=== PATIENT | female | born 1990 | race Caucasian/White ===

== ENCOUNTER 2017-07-28 07:30 | Day surgery (SDC) | payer OTHER ==
[2017-07-13 10:29] VITALS: Ht 152.4 cm; Wt 99.5 kg
[~2017-07-28] VITALS: Ht 152.4 cm; Wt 99.5 kg
[~2017-07-28 07:30] MED LIST: BCPILLS PO; CETI10TA84 PO; GLC/500 PO; KETO0.0216 OP; LACTATED RINGER'S 1000ML 1,000 ML IV SCH; MULT-506 PO; SCOPOLAMINE 1.5 MG TDSY TD SCH
[2017-07-28 08:07] VITALS: BP 121/91; PULSE 77; TEMP 36.8; O2SAT 96
--- NOTE | 2017-07-28 09:25 | History & Physical Bridge Note ---
H&P Re-Evaluation Bridge Note: I have examined the patient, reviewed the History & Physical and in the interval since the performance of the History & Physical I have noted the following changes of clinical significance: No changes noted
[2017-07-28] MEDS ORDERED: SODIUM CHLORIDE 0.9% 1000ML 1,000 ML IV SCH (09:31)
--- NOTE | 2017-07-28 09:31 | Discharge Instructions ---
Discharge Instructions Date of Service July 28, 2017. Admission Reason for Admission: Acute Recurrent Pansinusitis, Septal Deviation, and Hypertrophy of Both Inferior Turbinates. Discharge Discharge Diagnosis / Problem: Recurrent acute sinusitis, deviated nasal septum , turbinate hypertrophy. Discharge Goals Goal(s): Improve function Activity Recommendations Activity Limitations: as noted below Lifting Limitations: no more than 5 pounds Exercise/Sports Limitations: until after follow-up appointment May Resume Sexual Activity: after one week Shower/Bathe: tomorrow Driving or Machine Use: No driving while taking a narcotic. . Instructions / Follow-Up Instructions / Follow-Up Follow-up with Dr. Fernández on , 07/30/17. Current Hospital Diet Patient's current hospital diet: Discharge Diet Recommended Diet: Regular Diet Procedures Procedures Performed: Nasal and Sinus Surgical Endoscopy, Septoplasty, and bilateral inferior turbinate reduction. Pending Studies Studies pending at discharge: no Medical Emergencies . Who to Call and When: Medical Emergencies: If at any time you feel your situation is an emergency, please call 911 immediately. . Non-Emergent Contact Non-Emergency issues call your: Primary Care Provider Call Non-Emergent contact if: you have a fever . . "Provider Documentation" section prepared by Dave Fernández. .
[2017-07-28] MEDS ORDERED: THROMBIN 5000 UNITS KIT ONE (09:34)
[2017-07-28] MEDS ORDERED: LIDOCAINE/EPINEPHRINE 1% 20 ML VIAL ONE (09:34)
[2017-07-28] MEDS ORDERED: COCAINE HCL 4% / 4 ML VIAL ONE (09:34)
[2017-07-28] MEDS ORDERED: OXYMETAZOLINE HCL 0.05% NA SPR 15 ML BTL ONE ×3 (09:34→11:10)
[2017-07-28] MEDS ORDERED: BACITRACIN 50000 UNIT VIAL ONE ×2 (09:35→11:22)
[2017-07-28] MEDS ORDERED: ROCURONIUM BROMIDE 10 MG/ML 5 ML VIAL ONE (09:36)
[2017-07-28] MEDS ORDERED: MIDAZOLAM HCL 1 MG/ML 2ML VIAL ONE (09:36)
[2017-07-28] MEDS ORDERED: LIDOCAINE HCL 2% 2 ML VIAL (20MG/ML) ONE (09:36)
[2017-07-28] MEDS ORDERED: PROPOFOL IV EMULSION 10 MG/ML 20 ML VIAL ONE (09:36)
[2017-07-28] MEDS ORDERED: NEOSTIGMINE METHYLSULFATE 5 MG/5 ML SYR ONE (09:36)
[2017-07-28] MEDS ORDERED: ONDANSETRON INJ 2 MG/ML 2 ML VIAL ONE (09:36)
[2017-07-28] MEDS ORDERED: OFLOXACIN 0.3% OP SOLN 5 ML BTL ONE (09:36)
[2017-07-28] MEDS ORDERED: GLYCOPYRROLATE INJ 0.2 MG/ML VIAL ONE (09:36)
[2017-07-28] MEDS ORDERED: DEXAMETHASONE SOD INJ 4 MG/ML VIAL ONE (09:36)
[2017-07-28] MEDS ORDERED: FENTANYL CITRATE INJ 50 MCG/1 ML 2 ML VIAL ONE (09:36)
[2017-07-28] MEDS ORDERED: CIPRO 0.3%/DEXAMETHASONE 0.1% OTIC SUSP 7.5ML ONE (09:37)
[2017-07-28] MEDS ORDERED: NEOMYC/POLYMYX/BACITR/HC OP OI 3.5 GM TUBE ONE (09:37)
[2017-07-28] MEDS ORDERED: LARYING-O-JET KIT (LTA) ONE (09:41)
[2017-07-28] MEDS ORDERED: SALINE NASAL GEL (AYR) 14.1 GM TUBE ONE (09:45)
[2017-07-28] MEDS ORDERED: NURSING VERBAL MED ORDER ONE (09:45)
[2017-07-28] MEDS ORDERED: CEFAZOLIN SOD 1 GM VIAL ONE (10:11)
[2017-07-28] MEDS ORDERED: METOCLOPRAMIDE HCL INJ 5 MG/ML 2 ML VIAL ONE (10:18)
[2017-07-28] MEDS ORDERED: DiphenhydrAMINE HCL 50 MG/ML VIAL ONE (10:18)
[2017-07-28] MEDS ORDERED: STERILE IRRIGATING SOLUTION (BSS) 15ML ONE (11:29)
[2017-07-28] MEDS ORDERED: MEPERIDINE HCL 25 MG/ML CARP IV PRN (11:30)
[2017-07-28] MEDS ORDERED: EpHEDrine SULFATE INJ 50 MG/ML AMP IV PRN (11:30)
[2017-07-28] MEDS ORDERED: ATROPINE SULFATE 0.1 MG/ML 5ML SYR IV PRN (11:30)
[2017-07-28] MEDS ORDERED: FENTANYL CITRATE INJ 50 MCG/1 ML 2 ML VIAL IV PRN (11:30)
[2017-07-28] MEDS ORDERED: HYDROmorphone INJ 0.5 MG/0.5 ML SYR IV PRN (11:30)
[2017-07-28] MEDS ORDERED: ONDANSETRON INJ 2 MG/ML 2 ML VIAL IV PRN (11:30)
[2017-07-28] MEDS ORDERED: LABETALOL HCL IV 5 MG/ML 20ML IV PRN (11:30)
--- NOTE | 2017-07-28 11:39 | [facility] Post Operative Brief Note ---
Immediate Operative Summary Operative Date July 28, 2017. Pre-Operative Diagnosis A) Recurrent acute sinusitis. B) Deviated Nasal Septum C) Bilateral Inferior Turbinate Hypertrophy Post-Operative Diagnosis A - C: Same, HOWEVER, THE DEGREE OF SEPTAL DEVIATION DID NOT WARRANT SEPTOPLASTY, SO IT WAS NOT PERFORMED Procedure(s) Performed Nasal and Sinus Surgical Endoscopy, with bilateral inferior turbinate reduction. Surgeon Joselo Fernández M.D. Clinical Education Coordinator Surgeon(s) None. Estimated Blood Loss 100 ml Findings Consistent with Post-Op Diagnosis Fluids (cc crystalloids) 1,400 ML Specimens None. Drains None Anesthesia Type General Complication(s) none Disposition Accompanied Pt To Recover: no Disposition: Recovery Room / PACU Overlapping Procedure I was present for: the critical portions of procedure. I was immediately available: during the entire case Back up surgeon: was not required during procedure
[2017-07-28 13:10] VITALS: BP 137/99; PULSE 79; TEMP 36.4; O2SAT 96
--- NOTE | 2017-07-28 13:16 | OPERATIVE REPORT ---
DATE OF OPERATION: 07/28/2017 PREOPERATIVE DIAGNOSES: 1. Recurrent acute sinusitis. 2. Deviated nasal septum. 3. Bilateral inferior turbinate hypertrophy. POSTOPERATIVE DIAGNOSES: 1. Recurrent acute sinusitis. 2. Deviated nasal septum, however, the septal deviation was not severe enough to warrant a septoplasty. Therefore, no septoplasty was performed. 3. Bilateral inferior turbinate hypertrophy PROCEDURE PERFORMED 1. Nasal and sinus surgical endoscopy using Fusion image guidance resulting in: a.) Bilateral anterior ethmoidectomy (35000-46). b.) Bilateral maxillary sinusotomy without removal of tissue (44520-45). c.) Left nasofrontal recess balloon dilation (58450). 2. Bilateral inferior turbinate reduction. SURGEON: Dave Fernández MD CRIMINAL JUSTICE TEACHER SURGEON: None. BLOOD LOSS: 100 mL. SPECIMENS: None. FLUIDS PROVIDED: 1,400 mL of crystalloid. FINDINGS: 1. Septal deviation not severe enough to the left to warrant surgical correction. 2. Bilateral inferior turbinate hypertrophy. 3. Normal sinus mucosa for the ethmoid and maxillary sinuses. ANESTHESIA TYPE: General via endotracheal intubation. COMPLICATIONS: None. INDICATIONS FOR THE PROCEDURE: 27 year old woman meeting criteria for nasal and sinus surgical endoscopy based upon frequency of infections. She also had bilateral inferior turbinate hypertrophy recalcitrant to medical management. She was consented for septoplasty to ensure access. In a relaxed office setting, a full informed consent was provided that included the indications, risk, and benefits. There was an opportunity for questions and answers. DESCRIPTION OF PROCEDURE: The patient had an uneventful endotracheal intubation. The table was placed in reverse Trendelenburg. Oropharynx was packed with a vaginal pack. Septum, inferior turbinates, middle turbinates, and anterior ethmoidal bulla were injected with 15 mL of 1% lidocaine 1:100,000 parts epinephrine. The middle meatus was packed with 2 neurosurgical pledgets on each side, soaked in cocaine 4%. Remaining part of the nose on each side was packed with 2 neurosurgical pledgets soaked in oxymetazoline 0.05%. Therefore, at this point there were 8 neurosurgical pledgets in the nose. I calibrated the fusion image guidance system and then the patient was draped in a sterile fashion while I scrubbed. After returning, I removed the nasal packing in the nose, which consisted of 8 neurosurgical pledgets. I reassessed the nose and confirmed my suspicion that the septum did not need to undergo surgery. Therefore, no septoplasty was performed. Therefore, attention was directed to the inferior turbinates bilaterally. The mucosa for each inferior turbinate on the lateral surface was largely removed using the 4.3 straight microdebrider. Bone was also removed. Medial surface mucosa was carefully preserved. After removing bone and mucosa from the lateral surface, the Arthrocare coblation plasma wand was introduced. The technique was to first dip it in [place] saline gel, then to pass it along the lateral surface all the way to the posterior end of each inferior turbinate and then it was pulled out towards the nares counting to 10. This was done once on the lateral surface and then 2 times submucosally on the medial surface of each inferior turbinate. This effected a nice reduction in inferior turbinate size bilaterally. REMAINDER OF THE PROCEDURE WAS DONE USING THE SURGICAL HEADLIGHT, SURGICAL LOOPS, AND 30-DEGREE ENDOSCOPE INTERCHANGEABLY. UNFORTUNATELY, THE ENDOSCRUB DEVICE WAS NOT AVAILABLE. The anterior ethmoidal bulla was entered bilaterally using straight suction and then the 4.3 mm mid straight cutting microdebrider tip was used to perform an anterior ethmoidectomy. Ethmoid sinus mucosa was within normal limits. The natural ostium for each maxillary sinus was cannulated with a curved suction tip. The maxillary sinus was entered and the position confirmed with the image guidance. Backbiting forceps was used to create a wide sinusotomy bilaterally. Maxillary sinus mucosa was within normal limits. The left frontal recess was cannulated with the ostium seeker and position confirmed with image guidance. Then, the 6 mm x 17 mm balloon was introduced easily and its position confirmed. It was inflated to 12 atmospheres. There was copious irrigation and use of suction electrocautery to make sure hemostasis was obtained. There was no CSF leak and there was no excessive bleeding. After suction electrocautery and irrigation and removal of saline, there was no further bleeding seen and no CSF leak. Therefore, the ethmoid defect was packed with Nasopore soaked in bacitracin solution. Telfa soaked in bacitracin solution was placed along on the floor of the nose. Straws were placed between the Nasopore and the Telfa to facilitate breathing later for the patient. Mustache dressing was positioned. I removed the oropharyngeal packing from the oropharynx. I irrigated the oropharynx to make sure there was no blood, bone or cartilage in the oropharynx. There was no blood coming down from the nose into the oropharynx. Therefore, I placed an oral airway under direct visualization for the GRADUATE CIVIL ENGINEER. The patient was allowed to wake up on her own and transported to recovery in no apparent distress. I attest to the content of the Intraoperative Record and any orders documented therein. Any exceptions are noted below. MTDD
[2017-07-28 13:40] VITALS: BP 143/90; PULSE 92; TEMP 36.4; O2SAT 95
--- NOTE | 2017-07-28 13:57 | Anesthesiology Progress Note ---
Anesthesia Post Op Note Date & Time July 28, 2017 at 13:57 Vital Signs Pain Intensity: 4 Vital Signs Past 12 Hours Date Time Temp Pulse Resp B/P (MAP) Pulse Ox O2 Delivery O2 Flow Rate FiO2 07/28/17 13:40 36.4 92 18 143/90 95 Room Air 07/28/17 13:10 36.4 79 16 137/99 96 Room Air 07/28/17 12:55 36.6 81 16 148/83 95 Room Air 07/28/17 12:45 68 15 156/109 94 Room Air 07/28/17 12:35 74 22 148/103 98 Room Air 07/28/17 12:25 82 15 130/88 97 Room Air 07/28/17 12:15 81 21 139/88 100 Room Air 07/28/17 12:05 90 17 129/87 100 Oxymask 10 07/28/17 11:55 81 15 125/83 100 Oxymask 10 07/28/17 11:49 36.3 92 22 131/75 97 Oxymask 10 07/28/17 08:07 36.8 77 18 121/91 (101) 96 Room Air Notes Mental Status: alert / awake / arousable, participated in evaluation Pt Amnestic to Procedure: Yes Nausea / Vomiting: adequately controlled Pain: adequately controlled Airway Patency, RR, SpO2: stable & adequate BP & HR: stable & adequate Hydration State: stable & adequate Anesthetic Complications: no major complications apparent
[2017-07-28] MEDS ORDERED: CHECK SCOPOLAMINE PATCH PLACEMENT SCH (16:00)
== END 2017-07-28 13:57 | disposition home or self-care (01) ==
LOC: C.ACU 07:30
DX: J01.91 Acute recurrent sinusitis, unspecified (principal); J34.2 Deviated nasal septum; J34.3 Hypertrophy of nasal turbinates; E66.9 Obesity, unspecified; Z68.41 Body mass index [BMI] 40.0-44.9, adult; Z79.84 Long term (current) use of oral hypoglycemic drugs